=== PATIENT | male | born 1945 | race Caucasian/White ===

== ENCOUNTER 2020-02-19 07:38 | Outpatient (CLI) | payer MEDICARE, OTHER ==
[~2020-02-19 07:38] MED LIST: ASPI-515 PO; IBUP200C8 PO; OMEP20TA62 PO
== END 2020-02-19 23:59 | disposition home or self-care (01) ==
LOC: CFH 07:38 → MERGE 08:00 → CFH 23:59
PROVIDERS: ATTEND Internal Medicine Clinical Cardiac Electrophysiology
DX: I08.1 Rheumatic disorders of both mitral and tricuspid valves (principal)
CPT/HCPCS: 93306

== ENCOUNTER 2020-03-16 07:54 | Outpatient (CLI) | payer MEDICARE, OTHER ==
[2020-03-16] MEDS ORDERED: GADOTERATE 10 MMOL/20 ML VIAL ONE (10:51)
== END 2020-03-16 23:59 | disposition home or self-care (01) ==
LOC: CFH 07:54
DX: I77.810 Thoracic aortic ectasia (principal)
CPT/HCPCS: 71555; A9575; C8911

== ENCOUNTER → 2020-04-11 | Outpatient (CLI) | payer MEDICARE, OTHER ==
[~2020-04-11] MED LIST changes: +OMNIPAQUE 350 MG/ML, 100ML BOTTLE ONE
== END | disposition home or self-care (01) ==
LOC: CFH 14:51
PROVIDERS: ATTEND Internal Medicine Cardiovascular Disease
DX: I77.810 Thoracic aortic ectasia (principal); I25.10 Atherosclerotic heart disease of native coronary artery without angina pectoris; N28.1 Cyst of kidney, acquired; Q25.49 Other congenital malformations of aorta
CPT/HCPCS: 71275; Q9967